=== PATIENT | female | born 1970 | race Caucasian/White ===

== ENCOUNTER 2017-04-10 15:53 | Emergency (ER) | payer OTHER ==
[2017-04-10 16:52] VITALS: BP 115/76
--- NOTE | 2017-04-10 17:33 | UC ---
Lower Extremity/Ankle HPI - HPI Summary HPI Summary: 46 year old female with numerous complaints. 1) 1 week ago the right knee started to hurt and the next day she noticed a bulge on the back of the right knee. She says that the bulge is getting bigger everyday. she has not tried any treatment for the bulge. 2) she thinks she has a sinus infection. Sx started Friday of this week. She woke up with a sore throat. Then her chest felt tight for a few days. then her head has felt congested. She has been taking OTC meds. [ End ] - History of Current Complaint Chief Complaint: UCGeneralIllness Stated Complaint: RIGHT KNEE SWELLING Time Seen by Provider: 04/10/17 17:23 Hx Obtained From: Patient Hx Last Menstrual Period: 08/11/13 Onset/Duration: Gradual Onset Alleviating Factor(s): Rest Able to Bear Weight: Yes - Allergies/Home Medications Allergies/Adverse Reactions: Allergies Allergy/AdvReac Type Severity Reaction Status Date / Time No Known Allergies Allergy Verified 04/10/17 16:52 PMH/Surg Hx/FS Hx/Imm Hx Previously Healthy: Yes - Surgical History Surgical History: Yes Surgery Procedure, Year, and Place: D&C. partial hysterectomy - Family History Known Family History: Positive: None - Social History Occupation: Employed Full-time Lives: With Family Alcohol Use: None Substance Use Type: None Smoking Status (MU): Heavy Every Day Tobacco Smoker Amount Used/How Often: 1/2 ppd Length of Time of Smoking/Using Tobacco: started age 24 Cessation Counseling: Patient Advised to Stop Review of Systems Constitutional: Fatigue ENT: Nasal Discharge, Sinus Congestion, Sinus Pain/Tenderness Respiratory: Shortness Of Breath, Cough Musculoskeletal: Other: - LEFT LEG POSTERIOR KNEE SWELLING Is Patient Immunocompromised?: No All Other Systems Reviewed And Are Negative: Yes Physical Exam Triage Information Reviewed: Yes Appearance: Well-Appearing, No Pain Distress, Well-Nourished Vital Signs: Initial Vital Signs Temp 98.4 F 04/10/17 16:46 Pulse 84 04/10/17 16:46 Resp 16 04/10/17 16:46 BP 115/76 04/10/17 16:46 Pulse Ox 99 04/10/17 16:46 Vital Signs Reviewed: Yes Eye Exam: Normal ENT Exam: Normal Dental Exam: Normal Neck exam: Normal Neck: Positive: 1 Respiratory Exam: Normal Respiratory: Positive: Chest non-tender, No respiratory distress, Wheezing - RLL expiratory mild Cardiovascular Exam: Normal Musculoskeletal Exam: Normal Musculoskeletal: Positive: Other: - moderate swelling left posterior popliteal area -- no redness, no streaking or discharge. non tender to palpation. neg homans. no pitting edema. Neurological Exam: Normal Psychological Exam: Normal Skin Exam: Normal Lower Extremity Course/Dx - Course Course Of Treatment: 1) smoker with wheezing / worsening cough and concern it coulf continue to worsen -- start doxy and stop smoking. 2) popliteal fossa with moderate swelling-- no Sono here today -- pt declined going to ED, she desires referral to Ortho -- no redness neg homans so no significant concern for DVT - Differential Dx/Diagnosis Provider Diagnoses: 1) Bronchitis. 2) Left popliteal cyst Discharge - Discharge Plan Condition: Good Disposition: HOME Patient Education Materials: Bakers Cyst (ED), Acute Bronchitis (ED)
== END 2017-04-10 17:55 | disposition home or self-care (01) ==
LOC: UCCORT 15:53
DX: M71.22 Synovial cyst of popliteal space [Baker], left knee (principal); J40 Bronchitis, not specified as acute or chronic; F17.210 Nicotine dependence, cigarettes, uncomplicated
CPT/HCPCS: 99212; G0463